=== PATIENT | male | born 1950 | race Caucasian/White ===

== ENCOUNTER → 2024-06-13 12:03 | Outpatient (REF) | payer MEDICARE, SELFPAY | LOC: REG 12:03 | PROVIDERS: ATTENDING PHYSICIAN Nurse Practitioner Family; FAMILY PHYSICIAN Internal Medicine Geriatric Medicine | DX: R05.8 Other specified cough (principal) | CPT/HCPCS: 71046 ==

== ENCOUNTER → 2024-10-27 13:44 | Outpatient (REF) | payer MEDICARE, SELFPAY | LOC: RCS 13:44 | PROVIDERS: ATTENDING PHYSICIAN Nuclear Medicine Nuclear Cardiology; FAMILY PHYSICIAN Internal Medicine Geriatric Medicine | DX: I25.10 Atherosclerotic heart disease of native coronary artery without angina pectoris (principal); I50.32 Chronic diastolic (congestive) heart failure; I48.92 Unspecified atrial flutter | CPT/HCPCS: 93306 ==

== ENCOUNTER → 2024-12-11 12:42 | Outpatient (REF) | payer MEDICARE, SELFPAY ==
[2024-12-11 13:45] LABS: Hematocrit 49.1 % (39.0-52.0); Hemoglobin 15.9 g/dL (13.0-18.0); Mean Corp Hgb Conc. 32.4 g/dL (33.0-37.0); Mean Corpuscular Volume 89.4 fL (80.0-94.0); Nucleated Red Blood Cells % 0 % (-); Platelet Count 112 10^3/uL (130-400); Red Cell Dist. Width 13.5 % (11.5-14.5)
[2024-12-11 14:49] LABS: Blood Urea Nitrogen 19 mg/dl (9-20); Calcium 9.2 mg/dl (8.4-10.2); Carbon Dioxide 26 mmol/L (22-30); Chloride 98 mmol/L (98-107); Glucose 324 mg/dl (70-99); Potassium 4.5 mmol/L (3.5-5.1); Sodium 133 mmol/L (135-145); eGFR > 60.00
== END ==
LOC: RAD 12:42
PROVIDERS: ATTENDING PHYSICIAN Nurse Practitioner Family
DX: K04.7 Periapical abscess without sinus (principal); R22.0 Localized swelling, mass and lump, head
CPT/HCPCS: 36415; 70460; 70491; 80048; 85025; Q9967

== ENCOUNTER → 2025-01-02 12:38 | Outpatient (REF) | payer MEDICARE, SELFPAY | LOC: WOUND 12:38 | PROVIDERS: ATTENDING PHYSICIAN Surgery; FAMILY PHYSICIAN Internal Medicine Geriatric Medicine | DX: I87.312 Chronic venous hypertension (idiopathic) with ulcer of left lower extremity (principal); L97.222 Non-pressure chronic ulcer of left calf with fat layer exposed; I73.9 Peripheral vascular disease, unspecified; I87.2 Venous insufficiency (chronic) (peripheral); I50.32 Chronic diastolic (congestive) heart failure; E11.40 Type 2 diabetes mellitus with diabetic neuropathy, unspecified; Z79.4 Long term (current) use of insulin | CPT/HCPCS: 99204 ==

== ENCOUNTER → 2025-01-12 13:29 | Outpatient (REF) | payer MEDICARE, SELFPAY | LOC: WOUND 13:29 | PROVIDERS: ATTENDING PHYSICIAN Surgery; FAMILY PHYSICIAN Internal Medicine Geriatric Medicine | DX: I87.312 Chronic venous hypertension (idiopathic) with ulcer of left lower extremity (principal); L97.222 Non-pressure chronic ulcer of left calf with fat layer exposed; I73.9 Peripheral vascular disease, unspecified; I87.2 Venous insufficiency (chronic) (peripheral); I50.32 Chronic diastolic (congestive) heart failure; E11.40 Type 2 diabetes mellitus with diabetic neuropathy, unspecified; Z79.4 Long term (current) use of insulin | CPT/HCPCS: 97597 ==

== ENCOUNTER 2025-01-24 14:19 | Emergency (ER) | payer MEDICARE, SELFPAY ==
[2025-01-24 14:27] VITALS: BP 181/86
--- NOTE | 2025-01-24 15:18 | ED.GENMED ---
History of Present Illness
General
Chief Complaint: Male Genito-Urinary Symptoms
Time Seen by Provider: 01/24/25 15:12
History of Present Illness
History of Present Illness:
74-year-old male presents the emergency department for evaluation of genital area redness and discomfort for several days. He is grossly incontinent of urine and wears diapers. He states he changed his diaper 2-3 times a day. Has been using baby
powder without relief
Past History
Past History
ED Past Medical History: CHF, HTN and Other (Chronic edema of both legs, peripheral neuropathy, obstructive sleep apnea)
ED Past Surgical History: Appendectomy, Urological (Prostatectomy) and Other (Hernia repair)
Social History
Tobacco: Smoker
Alcohol: Daily
Personal:
Living: with family
Family History
Family History: Other (Father with liver cancer, grandfather with [place])
Review of Systems
Review of Systems
Allergies reviewed?: Yes
All Other Systems: ROS reviewed and negative except as documented in HPI and ROS
Phy Exam
Physical Exam
Physical Exam:
GEN: Well appearing, NAD, WDWN
HEENT: Oral mucosa moist, no scleral icterus
Cardiac: Regular rate
Lung: No respiratory distress, no tachypnea
: Severe erythema to the penile shaft/glans as well as scrotum with satellite papules throughout the intertriginous region, no purulent discharge,
MSK: No gross deformity or injuries
Skin: Good color, no pallor or jaundice, no rashes
Neuro: AO x3, moves all extremities freely
Psych: Calm, cooperative
Course
Vital Signs
Initial and Last Documented VS:
Initial Vital Signs
Temp Pulse Resp BP Pulse Ox
98.2 F 77 16 181/86 99
01/24/25 14:27 01/24/25 14:27 01/24/25 14:27 01/24/25 14:27 01/24/25 14:27
Last Documented Vital Signs
Temp Pulse Resp BP Pulse Ox
98.2 F 77 16 181/86 99
01/24/25 14:27 01/24/25 14:27 01/24/25 14:27 01/24/25 14:27 01/24/25 15:18
MDM/Problems Addressed
MDM/Problems Addressed:
Given the severe erythema and tenderness we will cover for bacterial coinfection but ultimately this is a fungal diaper rash and will treat with topical antifungals and hygiene recommendations were given to the patient and at discharge
*Pulse Oximetry
SaO2: 99
Oxygen Mode of Delivery: Room air
Patient hypoxic: no
*Critical Care Note
Total Time (30-74mins, 75-104mins- exclusive of procedures): Not Applicable
ED Attending Note
-
Portions of this chart may have been created with voice recognition software.� Occasional wrong word or��sound alike� substitutions may have occurred due to the inherent limitations of voice recognition software.
Discharge Plan
Departure
Patient Disposition: Home (Routine Discharge)
Date of Disposition: 01/24/25
Time of Disposition: 15:18
Patient with high blood pressure during this ER visit?: No
Discharge Problem:
Candidal intertrigo
Instructions: Fungal skin rash - ED (DC)
Prescriptions:
New
cephalexin 500 mg capsule
500 mg PO Q8H 7 Days Qty: 21 0RF
ketoconazole 2 % cream
1 applic topical BID 14 Days Qty: 120 1RF
No Action
coenzyme [id number] [Co Q-10 (with Vit E)] 1 EACH capsule
1 ea PO DAILY
furosemide 80 MG tablet
160 mg PO DAILY
potassium chloride [Klor-Con M20] 20 MEQ tablet,ER particles/crystals
20 meq PO BID
acetaminophen [Pain Reliever ES(acetaminophn)] 500 MG tablet
500 mg PO BID
umeclidinium [Incruse Ellipta] 62.5 MCG blister with device
62.5 mcg IH QID PRN (Reason: sob)
nitroglycerin 0.4 MG tablet, sublingual
0.4 mg sublingual [id number] PRN (Reason: chest pain) Qty: 25 2RF
metolazone 2.5 MG tablet
2.5 mg PO WEEKLY
fluticasone propionate 1 SPRAY spray,suspension
1 spray intranasal PRN PRN (Reason: nasal congestion)
insulin degludec [Tresiba FlexTouch U-100] 100 UNIT/ML insulin pen
28 unit SQ HS
Oxygen
3 l inhalation HS
clopidogrel 75 MG tablet
75 mg PO HS
cholecalciferol (vitamin D3) [Vitamin D3] 25 MCG capsule
25 mcg PO DAILY
pantoprazole 40 MG tablet,delayed release (DR/EC)
40 mg PO DAILY Qty: 30 4RF
rivaroxaban [Xarelto] 15 MG tablet
15 mg PO QPM Qty: 90 5RF
aspirin 81 MG tablet,delayed release (DR/EC)
81 mg PO HS Qty: 0 0RF
Rx Instructions:
STOP AFTER 2 WEEKS
insulin aspart U-100 [Novolog FlexPen U-100 Insulin] 300 UNITS/3 ML insulin pen
10 units SC AC Qty: 0 0RF
cyanocobalamin (vitamin B-12) 100 MCG tablet
100 mcg PO DAILY Qty: 90 0RF
metoprolol succinate 50 MG tablet extended release 24 hr
50 mg PO BID Qty: 60 0RF
ascorbic acid (vitamin C) [Vitamin C] 500 MG tablet
500 mg PO DAILY Qty: 90 0RF
pyridoxine (vitamin B6) 50 MG tablet
50 mg PO DAILY Qty: 90 0RF
losartan 100 MG tablet
100 mg PO DAILY Qty: 30 0RF
pregabalin 100 MG capsule
100 mg PO BID Qty: 60 0RF
Patient Comments:
05/21/2021: last filled 04/29/21, 60 tabs for 30 days from [facility]
Interventions
Interventions:
*Risk Screen - Suicide Last Done: 01/24/25 15:09
*General Assessment Last Done: 01/24/25 15:09
*Neglect/Abuse Screening Last Done: 01/24/25 15:09
*ED COVID-19 Vaccine History Last Done: 01/24/25 15:09
*Nursing Disposition Last Done: 01/24/25 16:03
ED-Male Genitourinary Assessment Last Done: 01/24/25 15:10
Discharge Date and Time
Discharge Date/Time: 01/24/25 16:04
Print Language: SAO TOMEAN
== END 2025-01-24 16:04 | disposition home or self-care (01) ==
LOC: EMR 14:19
PROVIDERS: EMERGENCY PHYSICIAN Emergency Medicine; FAMILY PHYSICIAN Internal Medicine
DX: B37.2 Candidiasis of skin and nail (principal); R32 Unspecified urinary incontinence; I11.0 Hypertensive heart disease with heart failure; I50.9 Heart failure, unspecified; G47.33 Obstructive sleep apnea (adult) (pediatric); G62.9 Polyneuropathy, unspecified; R60.0 Localized edema; F17.200 Nicotine dependence, unspecified, uncomplicated; Z90.79 Acquired absence of other genital organ(s); Z82.49 Family history of ischemic heart disease and other diseases of the circulatory system
CPT/HCPCS: 99283

== ENCOUNTER → 2025-02-09 09:52 | Outpatient (REF) | payer MEDICARE, SELFPAY | LOC: RAD 09:52 | PROVIDERS: ATTENDING PHYSICIAN Surgery; FAMILY PHYSICIAN Internal Medicine | DX: I73.9 Peripheral vascular disease, unspecified (principal); I87.312 Chronic venous hypertension (idiopathic) with ulcer of left lower extremity; I87.2 Venous insufficiency (chronic) (peripheral) | CPT/HCPCS: 93922; 93970 ==

== ENCOUNTER → 2025-02-22 14:00 | Outpatient (REF) | payer MEDICARE, SELFPAY | LOC: WOUND 14:00 | PROVIDERS: ATTENDING PHYSICIAN Surgery; FAMILY PHYSICIAN Internal Medicine Geriatric Medicine | DX: I87.312 Chronic venous hypertension (idiopathic) with ulcer of left lower extremity (principal); L97.222 Non-pressure chronic ulcer of left calf with fat layer exposed; I73.9 Peripheral vascular disease, unspecified; I87.2 Venous insufficiency (chronic) (peripheral); I50.32 Chronic diastolic (congestive) heart failure; E11.40 Type 2 diabetes mellitus with diabetic neuropathy, unspecified; Z79.4 Long term (current) use of insulin | CPT/HCPCS: 99212 ==

== ENCOUNTER 2025-03-03 12:25 | Emergency (ER) | payer MEDICARE, SELFPAY ==
[2025-03-03] VITALS (10 sets, daily range): BP systolic 105–142; BP diastolic 67–112
[2025-03-03 12:39] LABS: Glucose - Point of Care 538 mg/dl (70-99)
[2025-03-03 13:01] LABS: Hematocrit 50.9 % (39.0-52.0); Hemoglobin 16.7 g/dL (13.0-18.0); Mean Corp Hgb Conc. 32.8 g/dL (33.0-37.0); Mean Corpuscular Volume 86.7 fL (80.0-94.0); Nucleated Red Blood Cells % 0 % (-); Platelet Count 114 10^3/uL (130-400); Red Cell Dist. Width 12.3 % (11.5-14.5)
[2025-03-03 13:23] LABS: ALT (SGPT) 34 U/L (0-50); AST (SGOT) 22 U/L (17-59); Albumin 3.9 g/dl (3.5-5.0); Alkaline Phosphatase 131 U/L (38-126); Blood Urea Nitrogen 26 mg/dl (9-20); Calcium 8.5 mg/dl (8.4-10.2); Carbon Dioxide 24 mmol/L (22-30); Chloride 94 mmol/L (98-107); Potassium 4.8 mmol/L (3.5-5.1); Sodium 128 mmol/L (135-145); Total Protein 6.3 g/dl (6.3-8.2); eGFR > 60.00
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
[2025-03-03 13:50] LABS: Glucose 627 mg/dl (70-99)
[2025-03-03 14:36] LABS: Glucose - Point of Care 521 mg/dl (70-99)
[2025-03-03] MEDS: NOVOLIN R 8 UNITS SC (14:57)
[2025-03-03 17:20] LABS: Glucose - Point of Care 443 mg/dl (70-99)
[2025-03-03] MEDS: NOVOLIN R 4 UNITS SC (19:12)
[2025-03-03] MEDS: GLUCOPHAGE XR EXTENDED RELEASE 500 MG PO (19:19)
[2025-03-04 12:09] LABS: Glycohemoglobin (HgbA1c) 18.0 % (4.0-5.6)
== END 2025-03-03 19:28 | disposition home or self-care (01) ==
LOC: EMR 12:25
PROVIDERS: EMERGENCY PHYSICIAN Emergency Medicine; FAMILY PHYSICIAN Internal Medicine Geriatric Medicine
DX: E11.65 Type 2 diabetes mellitus with hyperglycemia (principal); F17.200 Nicotine dependence, unspecified, uncomplicated; G47.33 Obstructive sleep apnea (adult) (pediatric); I11.0 Hypertensive heart disease with heart failure; I50.9 Heart failure, unspecified; Z79.4 Long term (current) use of insulin
CPT/HCPCS: 96372; 99284; 80053; 82010; 82962; 83036; 85025

== ENCOUNTER 2025-05-01 22:19 | Observation (INO) | payer MEDICARE, SELFPAY ==
[2025-05-01] VITALS (7 sets, daily range): BP systolic 72–134; BP diastolic 45–93; BMI 36.2
[2025-05-01 20:11] LABS: Hematocrit 42.6 % (39.0-52.0); Hemoglobin 13.6 g/dL (13.0-18.0); Mean Corp Hgb Conc. 31.9 g/dL (33.0-37.0); Mean Corpuscular Volume 90.4 fL (80.0-94.0); Nucleated Red Blood Cells % 0 % (-); Platelet Count 194 10^3/uL (130-400); Red Cell Dist. Width 14.1 % (11.5-14.5)
[2025-05-01 20:33] LABS: ALT (SGPT) 21 U/L (0-50); AST (SGOT) 23 U/L (17-59); Albumin 3.3 g/dl (3.5-5.0); Alkaline Phosphatase 38 U/L (38-126); Blood Urea Nitrogen 31 mg/dl (9-20); Calcium 8.5 mg/dl (8.4-10.2); Carbon Dioxide 21 mmol/L (22-30); Chloride 106 mmol/L (98-107); Estimated Creatinine Clearance 80 ml/min; Glucose 194 mg/dl (70-99); Potassium 3.9 mmol/L (3.5-5.1); Sodium 136 mmol/L (135-145); Total Protein 5.6 g/dl (6.3-8.2); eGFR > 60.00
--- NOTE | 2025-05-01 20:56 | ED.GENMED ---
History of Present Illness
General
Chief Complaint: Dental Problem
Time Seen by Provider: 05/01/25 20:48
History of Present Illness
History of Present Illness:
Patient is a 74-year-old with history of A-fib on Xarelto presenting to the emergency department with bleeding. Patient had an infection to his teeth and had UPPER teeth removed. He held his Xarelto yesterday. Shortly after the procedure he had
significant amount of bleeding. He almost filled a whole 8 ounce cup with clots. He called his dentist who told him to come in to be evaluated at the office. However on their way to the office patient stood up he became extremely lightheaded
dizzy and had a near syncopal event. Since patient is been in the emergency department bleeding has stopped. He does state that he was on antibiotics prior to the teeth being removed. At this time patient has no other complaints. Per medics
patient was hypotensive in the 70s. The discharge liter of fluids.
Past History
Past History
ED Past Medical History: CHF, HTN and Other (Chronic edema of both legs, peripheral neuropathy, obstructive sleep apnea)
ED Past Surgical History: Appendectomy, Urological (Prostatectomy) and Other (Hernia repair)
Social History
Tobacco: Smoker
Alcohol: Daily
Personal:
Living: with family
Family History
Family History: Other (Father with liver cancer, grandfather with SD)
Phy Exam
Physical Exam
Physical Exam:
GENERAL: in no acute distress
HEENT: normocephalic, clotted sockets in all upper teeth, dried blood in mouth, no active bleeding , extraocular movements intact
NECK: normal inspection
RESPIRATORY: no respiratory distress, clear to auscultation bilaterally
CARDIOVASCULAR: regular rate and rhythm
ABDOMEN/: soft, non-distended, non-tender to palpation, no rebound or guarding
EXTREMITIES: non-tender, no edema/swelling
NEUROLOGIC: awake and alert, moves all extremities
SKIN: warm
Course
Orders/Labs/Results
Orders:
Orders
05/01/25 20:02
EKG [Electrocardiogram (*1)] Urgent
Reason for Study: Syncope
05/01/25 20:03
EKG- Treatment ONCE
05/01/25 20:05
Complete Blood Count/With Diff Urgent
Comprehensive Metabolic Panel Urgent
Abnormal Lab Results
05/01/25
20:05
WBC 20.6 H 10^3/uL
(4.8-10.8)
MCHC 31.9 L g/dL
(33.0-37.0)
MPV 11.7 H fL
(7.4-10.4)
Abs Immat Gran (auto) 0.1 H 10^3/uL
(0-0.05)
Absolute Neuts (auto) 16.5 H 10^3/uL
(1.4-6.5)
Absolute Monos (auto) 1.2 H 10^3/uL
(0.1-0.6)
Immature Gran % 0.7 H %
(0-0.5)
Neutrophils % 79.9 H %
(42.2-75.2)
Lymphocytes % 12.6 L %
(20.5-51.1)
Carbon Dioxide 21 L mmol/L
(22-30)
BUN 31 H mg/dl
(9-20)
Glucose 194 H mg/dl
(70-99)
Total Protein 5.6 L g/dl
(6.3-8.2)
Albumin 3.3 L g/dl
(3.5-5.0)
05/01/25 20:05
05/01/25 20:05
Vital Signs
Initial and Last Documented VS:
Initial Vital Signs
Temp Pulse Resp BP Pulse Ox
99.1 F 78 20 72/45 97
05/01/25 19:49 05/01/25 19:49 05/01/25 19:49 05/01/25 19:49 05/01/25 19:49
Last Documented Vital Signs
Temp Pulse Resp BP Pulse Ox
99.1 F 73 20 117/61 97
05/01/25 19:49 05/01/25 20:19 05/01/25 20:19 05/01/25 20:19 05/01/25 20:59
MDM/Problems Addressed
Differential Diagnosis Includes:
Patient is a 74-year-old male with history of A-fib on Xarelto presenting to the emergency department with bleeding after having all of his upper teeth removed following a dental infection. On arrival patient was hypotensive though during my
evaluation patient is normotensive after a liter of fluids. Exam does show clotted sockets in all his upper teeth. No active bleeding. Blood work obtained prior to evaluation does show leukocytosis which could be stress response versus this
infection that has been treated with antibiotics. He has a 3 point hemoglobin drop from February. Given the amount of bleeding will discuss with patient's dentist.
*Pulse Oximetry
SaO2: 97
Oxygen Mode of Delivery: Room air
Patient hypoxic: no
*Critical Care Note
Total Time (30-74mins, 75-104mins- exclusive of procedures): Not Applicable
Update Note
Update Note:
discussed with Dr. english from [facility]. He stated that the infection was not active which is why the teeth were removed. Leukocytosis certainly could be stress response in the situation. Regardless given the amount of bleeding, hypotension
and blood work abnormality will admit patient to the hospital for reassessment and observation. Dr. English is aware that patient will be admitted and for further problems to reach out to him overnight. If bleeding were to resume we will treat with
TXA soaked gauze or Surgifoam
ED Attending Note
-
Portions of this chart may have been created with voice recognition software.� Occasional wrong word or��sound alike� substitutions may have occurred due to the inherent limitations of voice recognition software.
Discharge Plan
Departure
Patient Disposition: Admit
Date of Disposition: 05/01/25
Time of Disposition: 21:11
Presentation/result/management discussed w/ accepting MD/DO: Hospitalist
Discharge Problem:
Bleeding post tooth extraction
Prescriptions:
No Action
furosemide 80 MG tablet
80 mg PO DAILY
potassium chloride [Klor-Con M20] 20 MEQ tablet,ER particles/crystals
20 meq PO BID
acetaminophen [Pain Reliever ES(acetaminophn)] 500 MG tablet
500 mg PO BID
fluticasone propionate 1 SPRAY spray,suspension
1 spray intranasal PRN PRN (Reason: nasal congestion)
clopidogrel 75 MG tablet
75 mg PO HS
cholecalciferol (vitamin D3) [Vitamin D3] 25 MCG capsule
25 mcg PO DAILY
coenzyme Q10 100 mg Tablet
100 mg PO DAILY
docusate sodium 100 mg Tablet
100 mg PO DAILYPRN PRN (Reason: constipation)
Xarelto 20 mg tablet
20 mg PO DAILY
Repatha SureClick 140 mg/mL pen injector
140 mg SC Q14D
metformin [Glucophage XR] 500 mg tablet extended release 24 hr
500 mg PO QPM Qty: 30 0RF
Rx Instructions:
Please increase to 1000 mg every evening after 7 days
cyanocobalamin (vitamin B-12) 100 MCG tablet
100 mcg PO DAILY Qty: 90 0RF
metoprolol succinate 50 MG tablet extended release 24 hr
50 mg PO BID Qty: 60 0RF
ascorbic acid (vitamin C) [Vitamin C] 500 MG tablet
500 mg PO DAILY Qty: 90 0RF
pyridoxine (vitamin B6) 50 MG tablet
50 mg PO DAILY Qty: 90 0RF
losartan 100 MG tablet
100 mg PO DAILY Qty: 30 0RF
pregabalin 100 MG capsule
100 mg PO BID Qty: 60 0RF
Patient Comments:
last filled 02/10/25 #60
Referrals:
Rui Davis DO [Family Provider, Internal Medicine]
Interventions
Interventions:
*General Assessment Last Done: 05/01/25 19:49
*Neglect/Abuse Screening Last Done: 05/01/25 19:49
*ED COVID-19 Vaccine History Last Done: 05/01/25 19:49
*ED Influenza Vaccine History Last Done: 05/01/25 19:49
[facility] Risk Assessment Tool Last Done: 05/01/25 19:36
*Risk Screen - Suicide (C-SSRS) Last Done: 05/01/25 19:49
Discharge Date and Time
Print Language: LITHUANIAN
--- NOTE | 2025-05-01 21:53 | HPS.HSE ---
Addendum entered and electronically signed by Nhi Rojo MD 05/01/25 22:00:
Patient with also with history of multivessel CAD, peripheral vascular disease, COPD, peripheral neuropathy, type 2 diabetes. Patient also on Plavix which should be held at the current time.
Insulin sliding scale.
Addendum entered and electronically signed by Nhi Rojo MD 05/01/25 21:58:
Patient on plavix as well. Hold plavix.
Original Note:
Family Physician
-
Family Physician: Rui Davis
Chief Complaint
-
oral bleeding
History of Present Illness
74-year-old male past medical history of paroxysmal atrial fibrillation on Xarelto, CHF, hypertension, prostate cancer, hypercholesteremia, depression, alcohol use, obstructive sleep apnea, history of hypercarbic respiratory failure with intubation,
obesity, chronic thrombocytopenia, nicotine use, presenting with bleeding from the mouth. Patient has chronic dental infection of his upper teeth and had his upper teeth removed today. His Xarelto was held yesterday but he took it the day prior.
Shortly after procedure he had significant amount of bleeding. He almost filled a whole 8 ounce cup with blood and clots. He called his dentist who told to come to the office. On the way to the office patient stood up and became extremely
lightheaded and dizzy and had a near syncopal event therefore came to the emergency room instead as per EMS. Bleeding has since stopped while in the emergency room. As per EMS patient's blood pressure was 70s. He was given 1 L of IV fluids.
He currently denies any symptoms.
Medical History
Past Medical History
Past Medical History: Reports Other (paroxysmal atrial fibrillation on Xarelto, CHF, hypertension, prostate cancer, hypercholesteremia, depression, alcohol use, obstructive sleep apnea, history of hypercarbic respiratory failure with intubation,
obesity, chronic thrombocytopenia, nicotine use,)
Past Surgical History: Reports Other (Appendectomy, prostatectomy,)
Social History
Tobacco: Former Smoker
Alcohol: Daily
Drug: None
Family History
Family History: Not pertinent
Allergies / Home Medications
Allergies reflects when Allergies were last updated in [employer].
Home Medications with original date entered in [employer]
Allergy/Medication List:
Allergies
Allergy/AdvReac Type Severity Reaction Status Date / Time
bee venom protein (honey bee) Allergy Hives Verified 03/03/25 12:32
Mawepht-KDO-HrM Reductase Allergy Unknown Verified 03/03/25 12:32
Inhibitor
Home Medications
ascorbic acid (vitamin C) 500 mg tablet (Vitamin C) 500 mg PO DAILY #90 tabs 10/31/20
cyanocobalamin (vitamin B-12) 100 mcg tablet 100 mcg PO DAILY #90 tabs 10/31/20
losartan 100 mg tablet 100 mg PO DAILY #30 tabs 10/31/20
metoprolol succinate 50 mg tablet,extended release 24 hr 50 mg PO BID #60 tabs 10/31/20
pregabalin 100 mg capsule 100 mg PO BID #60 caps 10/31/20
pyridoxine (vitamin B6) 50 mg tablet 50 mg PO DAILY #90 tabs 10/31/20
furosemide 80 mg tablet 80 mg PO DAILY Fluid retention/Swelling 05/21/21
potassium chloride 20 mEq tablet,extended release(part/cryst) (Klor-Con M) 20 meq PO BID Electrolyte Repletion 05/22/21
acetaminophen 500 mg tablet (Pain Reliever Extra Strength (acetaminophen)) 500 mg PO BID 07/21/21
fluticasone propionate 50 mcg/actuation nasal spray,suspension 1 spray intranasal PRN PRN nasal congestion 08/01/21
cholecalciferol (vitamin D3) 25 mcg (1,000 unit) capsule (Vitamin D3) 25 mcg PO DAILY 08/12/21
clopidogrel 75 mg tablet 75 mg PO HS 08/12/21
coenzyme Q10 100 mg tablet 100 mg PO DAILY 03/03/25
docusate sodium 100 mg tablet 100 mg PO DAILYPRN PRN constipation 10/18/25
evolocumab 140 mg/mL subcutaneous pen injector (Repatha SureClick) 140 mg SC Q14D 03/03/25
metformin 500 mg tablet,extended release 24 hr (Glucophage XR) 500 mg PO QPM #30 tabs 03/03/25
rivaroxaban 20 mg tablet (Xarelto) 20 mg PO DAILY 03/03/25
Review of Systems
-
History Source: Patient
A 12 point ROS was completed and negative except as noted: Yes
Constitutional: Reports No Symptoms
EENT: Reports No Symptoms
Respiratory: Reports No Symptoms
Cardiac: Reports No Symptoms
Abdomen/GI: Reports No Symptoms
: Reports No Symptoms
Musculoskeletal: Reports No Symptoms
Skin: Reports No Symptoms
Neurological: Reports No Symptoms
Endocrine: Reports No Symptoms
Hematologic/Lymphatic: Reports No Symptoms
Psych: Reports No Symptoms
Physical Exam
Vital Signs
Vital Signs
Temp Pulse Resp BP Pulse Ox
99.1 F 73 20 117/61 97
05/01/25 19:49 05/01/25 20:19 05/01/25 20:19 05/01/25 20:19 05/01/25 20:59
Physical Exam
General: Well Developed, Well Nourished and No Apparent Distress
HEENT: NormoCephalic, Moist mucous membranes and Atraumatic
Respiratory: Clear
Cardiac: S1/S2 and Regular Rhythm; No Murmur or Rub
GI: Soft, Non Tender, Non Distended and Normal Bowel Sounds; No Organomegaly
Rectal: Deferred by Provider
Musculoskeletal: No Clubbing, No Cyanosis and No Edema
Skin: No Rash
Neuro: Nonfocal/grossly intact
Laboratory Results
-
05/01/25 20:05
05/01/25 20:05
Laboratory Results
Total Bilirubin 1.0 mg/dl (0.2-1.3) 12/16/25 20:05
AST 23 U/L (17-59) 05/01/25 20:05
ALT 21 U/L (0-50) 05/01/25 20:05
Alkaline Phosphatase 38 U/L (38-126) 05/01/25 20:05
Data Reviewed
-
Lab Data: Labs Reviewed by me
Old Records: Reviewed
Impression/Plan
-
IMPRESSION:
PLAN:
# Oral bleeding after teeth extraction secondary to Xarelto
# Presyncopal episode secondary to blood loss
-Blood pressure initially 72/45
-Leukocytosis of 20 likely stress response
-Hemoglobin of 13.6 from 16.7 previous
-Bleeding resolved
- Continue to hold Xarelto
- If bleeding resumes would be need to be treated with TXA soaked gauze or Surgifoam
- ER spoke with Dr. Cameron from [facility] who indicated that infection was not active and leukocytosis could be stress response
- Observation overnight, monitor hemoglobin
- N.p.o. for now
Paroxysmal atrial fibrillation
- Continue metoprolol
- Hold Xarelto
History of heart failure
- Hold Lasix
Essential hypertension
- Hold losartan
Prostate cancer
Hypercholesteremia
Depression
Alcohol use
- Drinks 2 drinks per day
Obstructive sleep apnea
History of hypercarbic respiratory failure status post intubation
Obesity
Chronic thrombocytopenia
- Improved
Nicotine use
Full code
DVT prophylaxis SCDs
N.p.o.
[2025-05-01] MEDS: TYLENOL 1000 MG PO (23:43)
[2025-05-02] VITALS (7 sets, daily range): BP systolic 126–162; BP diastolic 58–82
[2025-05-02 06:30] LABS: Hematocrit 37.0 % (39.0-52.0); Hemoglobin 12.2 g/dL (13.0-18.0); Mean Corp Hgb Conc. 33.0 g/dL (33.0-37.0); Mean Corpuscular Volume 90.2 fL (80.0-94.0); Nucleated Red Blood Cells % 0 % (-); Platelet Count 158 10^3/uL (130-400); Red Cell Dist. Width 14.2 % (11.5-14.5)
[2025-05-02 06:59] LABS: ALT (SGPT) 18 U/L (0-50); AST (SGOT) 17 U/L (17-59); Albumin 2.9 g/dl (3.5-5.0); Alkaline Phosphatase 30 U/L (38-126); Blood Urea Nitrogen 47 mg/dl (9-20); Calcium 8.3 mg/dl (8.4-10.2); Carbon Dioxide 23 mmol/L (22-30); Chloride 111 mmol/L (98-107); Estimated Creatinine Clearance 100 ml/min; Glucose 110 mg/dl (70-99); Potassium 4.0 mmol/L (3.5-5.1); Sodium 138 mmol/L (135-145); Total Protein 5.2 g/dl (6.3-8.2); eGFR > 60.00
[2025-05-02 08:42] LABS: Glycohemoglobin (HgbA1c) 8.8 % (4.0-5.9)
--- NOTE | 2025-05-02 08:58 | PTCARENOTE ---
Morning accucheck resulted 107. Accucheck data did not transfer successfully.
[2025-05-02 12:26] LABS: Glucose - Point of Care 107 mg/dl (70-99)
[2025-05-02 12:26] LABS: Glucose - Point of Care 119 mg/dl (70-99)
--- NOTE | 2025-05-02 13:25 | W.PN.HOSP.TC ---
Today's Communication/Plan
-
dc to home and dental/cards f/u tomorrow
Assessment / Plan
Assessment / Plan
Assessment:
Oral bleeding after teeth extraction secondary to Xarelto/Plavix
Presyncopal episode secondary to blood loss
- BP improved with resolution of bleeding
- No further bleeding in hospital
- Dr. Marrero discussed with Dr. Cameron - plan is to discharge home and follow up 05/03 at 130pm appointment. Continue holding Xarelto/Plavix. Dr. Marrero also notified Dr. Rivera (patient has appointment 05/03 at 4pm.
- Diet recommendation is clears tonight
- Dr. Cameron states no mouth washing/care until evaluated tomorrow.
Leukocytosis likely stress response
- WBC resolved
Paroxysmal atrial fibrillation
CAD s/p stents
- Continue metoprolol
- Hold Xarelto/Plavix as above
History of heart failure
- resume Lasix
Essential hypertension
- resume losartan
Prostate cancer
Hypercholesteremia
Depression
Alcohol use
- Drinks 2 drinks per day
Obstructive sleep apnea
History of hypercarbic respiratory failure status post intubation
Obesity
Chronic thrombocytopenia
- Improved
Nicotine use
DVT ppx: SCDs
Code: Full
More than 30 minutes spent in discharge including
Final examination of the patient
Summarizing hospital stay
Instructions for continuing care to all relevant caregivers
Preparation of discharge records, prescriptions, and referral forms
Total time spent (in minutes): 41
Anticipated Discharge: Today
Subjective/Interval History
-
Date of Service: May 02, 2025
no further bleeding
mouth with clots, but no oozing
Objective Data
-
Labs:
Laboratory Results
05/02/25
06:13
WBC 10.6
Hgb 12.2 L
Hct 37.0 L
Plt Count 158
Sodium 138
Potassium 4.0
Chloride 111 H
Carbon Dioxide 23
BUN 47 H
Creatinine 0.8
Glucose 110 H
Calcium 8.3 L
Total Bilirubin 0.7
AST 17
ALT 18
Alkaline Phosphatase 30 L
Vital Signs:
Vital Signs
Temp Pulse Resp BP Pulse Ox
99.2 F 86 21 141/73 94
05/02/25 11:11 05/02/25 05:00 05/02/25 05:00 05/02/25 04:00 05/02/25 05:22
Physical Exam
-
General: No Apparent Distress
HEENT: Normocephalic, Atraumatic and Other (no active dental bleeding, clots stable)
Respiratory: Negative Wheezes
Cardiac: Regular Rhythm and S1/S2
GI: Soft
Genito-urinary: No Costovertebral Tender
Musculoskeletal: No Edema
Neuro: AO x 3
Psych: Calm
Data Reviewed
-
Total Time Spent with Patient (in minutes): 42
Labs: Labs Reviewed by me
--- NOTE | 2025-05-02 14:35 | W.DCSUMMARY ---
Discharge Summary
Discharge Data
Date of Admission: 05/01/25
Date of Discharge: 05/02/25
-
Pending Results: No
Hospital Course
74 y/o M, hx of paroxysmal atrial fibrillation on Xarelto, CHF, hypertension, prostate cancer, hypercholesteremia, depression, alcohol use, obstructive sleep apnea, history of hypercarbic respiratory failure with intubation, obesity, chronic
thrombocytopenia, nicotine use, presented to ER with bleeding from the mouth after dental extractions. Patient is on Xarelto/Plavix at baseline for CAD and A. Fib. Patient called dentist Dr. Cameron and was recommended for office evaluation but patient
had hypotension and presyncope requiring ER evaluation and admission. Patients bleeding cessated in hospital without intervention. Hb was 12 (baseline 16). He received IV fluids and his BP improved. His dentist office recommended follow up in 24
hours to for exam and next steps on oral care including also determination of blood thinner resumption. Patient was discharged home in stable condition on 05/02/25.
Discharge Plan
-
Patient Disposition: Home (Routine Discharge)
Discharge Diagnosis/Procedures: post teeth extraction bleeding, hypotension resolved
Condition: Fair
Additional Diets: clear liquids until evaluated by Dentist
Activity: As tolerated
Bathing Restrictions: None
Activity Restrictions/Additional Instructions:
per Dr. Cameron - do NOT perform oral care or washing until he can evaluate and examine tomorrow.
Referrals:
Rui Davis DO [Family Provider, Internal Medicine]
Additional Discharge Medication Instructions: hold Plavix and Eliquis until guided further by Dentist on timeline to resume. Dr. Rivera Rebrander is aware that meds are held.
Prescriptions:
Continued
furosemide 80 MG tablet
80 mg PO BID
acetaminophen [Pain Reliever ES(acetaminophn)] 500 MG tablet
500 mg PO BIDPRN PRN (Reason: mild pain)
fluticasone propionate 1 SPRAY spray,suspension
1 spray intranasal DAILYPRN PRN (Reason: nasal congestion)
cholecalciferol (vitamin D3) [Vitamin D3] 25 MCG capsule
25 mcg PO DAILY
coenzyme Q10 100 mg Tablet
100 mg PO DAILY
docusate sodium 100 mg Tablet
100 mg PO DAILYPRN PRN (Reason: constipation)
Repatha SureClick 140 mg/mL pen injector
140 mg SC Q14D
metoprolol succinate 50 MG tablet extended release 24 hr
50 mg PO BID
losartan 100 MG tablet
100 mg PO DAILY
allopurinol 100 mg Tablet
100 mg PO DAILY
insulin lispro [Admelog SoloStar U-100 Insulin] 100 unit/mL Insulin Pen
8 sliding scale dose SC AC
pregabalin [Lyrica] 150 mg Capsule
150 mg PO BID
insulin glargine [Lantus Solostar U-100 Insulin] 100 unit/mL (3 mL) Insulin Pen
24 unit SC DAILY
cyanocobalamin (vitamin B-12) 100 MCG tablet
100 mcg PO DAILY Qty: 90 0RF
ascorbic acid (vitamin C) [Vitamin C] 500 MG tablet
500 mg PO DAILY Qty: 90 0RF
pyridoxine (vitamin B6) 50 MG tablet
50 mg PO DAILY Qty: 90 0RF
Held
clopidogrel 75 MG tablet
75 mg PO HS
Hold Instructions: until cleared by Dentist/Cardiology to resume
Xarelto 20 mg tablet
20 mg PO HS
Hold Instructions: until cleared by Dentist/Cardiology to resume
Discharge Orders:
Discharge Patient (As Directed); Ordered 05/02/25
Ordered By: Divina Marrero
Discharge Date and Time
Print Language: COMORAN
--- NOTE | 2025-05-02 15:03 | PTCARENOTE ---
Discharge instructions reviewed with patient. Hold anticoagulants, clear liquids, no oral care until seen by dentist for appointment tomorrow. Pt and clear on instructions to attend Dentist and Cardiology appointments tomorrow. IV site removed.
Wheelchair escort to 's car.
== END 2025-05-02 15:12 | disposition home or self-care (01) ==
LOC: ED 22:19
PROVIDERS: Emergency Medicine; ADMITTING PHYSICIAN Hospitalist; ATTENDING PHYSICIAN Internal Medicine; EMERGENCY PHYSICIAN Student in an Organized Health Care Education/Training Program; FAMILY PHYSICIAN Internal Medicine; REFERRING PHYSICIAN Nuclear Medicine Nuclear Cardiology
DX: K08.89 Other specified disorders of teeth and supporting structures (principal); R58 Hemorrhage, not elsewhere classified; I48.0 Paroxysmal atrial fibrillation; K13.79 Other lesions of oral mucosa; R55 Syncope and collapse; I95.9 Hypotension, unspecified; G47.33 Obstructive sleep apnea (adult) (pediatric); D72.829 Elevated white blood cell count, unspecified; I25.10 Atherosclerotic heart disease of native coronary artery without angina pectoris; I44.4 Left anterior fascicular block; I44.0 Atrioventricular block, first degree; J44.9 Chronic obstructive pulmonary disease, unspecified; E11.42 Type 2 diabetes mellitus with diabetic polyneuropathy; E11.51 Type 2 diabetes mellitus with diabetic peripheral angiopathy without gangrene; I11.0 Hypertensive heart disease with heart failure; F32.A Depression, unspecified; E78.00 Pure hypercholesterolemia, unspecified; D69.6 Thrombocytopenia, unspecified; E66.9 Obesity, unspecified; Z68.36 Body mass index [BMI] 36.0-36.9, adult; Z79.01 Long term (current) use of anticoagulants; Z90.79 Acquired absence of other genital organ(s); Z90.49 Acquired absence of other specified parts of digestive tract; Z82.49 Family history of ischemic heart disease and other diseases of the circulatory system; Z80.0 Family history of malignant neoplasm of digestive organs; Z79.84 Long term (current) use of oral hypoglycemic drugs; Z79.02 Long term (current) use of antithrombotics/antiplatelets; Z85.46 Personal history of malignant neoplasm of prostate; Z87.891 Personal history of nicotine dependence; Z88.8 Allergy status to other drugs, medicaments and biological substances; Z91.030 Bee allergy status; Z79.899 Other long term (current) drug therapy
CPT/HCPCS: 80053; 82962; 83036; 85025; 93005; 99284; G0378